=== PATIENT | male | born 1945 | race Caucasian/White ===

== ENCOUNTER 2016-10-28 11:21 | Emergency (ER) | payer MEDICARE, MEDICAID ==
[~2016-10-28] VITALS: Ht 177.8 cm; Wt 68.0 kg
[~2016-10-28 11:21] MED LIST: AMLO10TA80 PO; GLYPIZIDE; HYDR100T26 PO; ISOS20TA8 PO; LOSA100T14 PO; ONDA4TAB5 PO; SEVE800T PO
[2016-10-28] MEDS ORDERED: ONDANSETRON HCL 4MG/2ML VIAL IV STA (12:35)
[2016-10-28 12:55] LABS: BASOPHILS % 0.7 % (0.0-2.0); EOSINOPHILS % 1.7 % (0.0-5.0); HEMATOCRIT. 32.8 % (42.0-52.0); HEMOGLOBIN. 10.9 g/dL (14.0-18.0); LYMPHOCYTES % 11.6 % (20.0-50.0); MEAN CORPUSCULAR HEMOGLOBIN 32.5 pg (28.0-32.0); MEAN CORPUSCULAR HGB CONC 33.1 g/dL (31.0-37.0); MEAN CORPUSCULAR VOLUME 97.9 fL (80.0-94.0); MEAN PLATELET VOLUME 10.6 fl (7.4-10.4); MONOCYTES % 9.9 % (2.0-8.0); NEUTROPHILS % 76.1 % (40.0-76.0); PLATELET 102 x1000/uL (130-400); RED BLOOD CELL COUNT 3.34 mill/uL (4.7-6.1); RED CELL DISTRIBUTION WIDTH 16.4 % (11.6-14.6); WHITE BLOOD COUNT 6.7 x1000/uL (4.5-11.0)
[2016-10-28 13:03] LABS: INR 1.1; PROTHROMBIN TIME 11.4 sec
[2016-10-28 13:06] LABS: ALBUMIN 3.8 g/dL (3.4-5.0); ANION GAP 17; CALCIUM 7.9 mg/dL (8.5-10.1); CARBON DIOXIDE 33 mEq/L (21-32); CHLORIDE 94 mEq/L (98-107); ETHANOL BLOOD < 10 mg/dL; INDEX HEMOLYSI 1 (1-3); INDEX ICTERIC 1 (1-4); INDEX LIPEMIC 1 (1-3); LIPASE 333 IU/L (73-393); UREA NITROGEN BLOOD 63 mg/dL (7-21)
[2016-10-28 13:12] LABS: ALANINE AMINOTRANSFERASE 29 IU/L (13-61); eGFR 9 mL/min (>60)
[2016-10-28] MEDS ORDERED: SODIUM POLYSTYRENE SULFONATE 15 G/60 ML BOT PO NR (14:45)
[2016-10-28] MEDS ORDERED: SODIUM POLYSTYRENE SULFONATE 15 G/60 ML BOT PO ONE (16:15)
[2016-10-28 17:26] VITALS: BP 168/89
== END 2016-10-28 17:46 | disposition home or self-care (01) ==
LOC: ER 13:17
DX: R10.9 Unspecified abdominal pain (principal); Z79.899 Other long term (current) drug therapy; I12.9 Hypertensive chronic kidney disease with stage 1 through stage 4 chronic kidney disease, or unspecified chronic kidney disease; N18.9 Chronic kidney disease, unspecified; E11.22 Type 2 diabetes mellitus with diabetic chronic kidney disease; Z99.2 Dependence on renal dialysis
CPT/HCPCS: 36415; 74000; 76700; 80053; 83690; 85025; 85610; 96374; 99285; G0482; J2405

== ENCOUNTER → 2017-02-12 | Outpatient (CLI) | payer MEDICARE, MEDICAID | END | disposition home or self-care (01) | LOC: RAD 11:26 | PROVIDERS: ATTEND Internal Medicine Nephrology | DX: I51.7 Cardiomegaly (principal); K81.9 Cholecystitis, unspecified | CPT/HCPCS: 71020; 93005 ==